=== PATIENT | male | born 1955 | race Caucasian/White ===

== ENCOUNTER 2020-03-03 09:37 | Day surgery (SDC) | payer MEDICAID ==
[~2020-03-03] VITALS: Ht 180.3 cm; Wt 85.5 kg
[~2020-03-03 09:37] MED LIST: FURO-149 PO; LACT10SO PO; LANTUS SQ; NEED-136; PANT40TA54 PO; SPIR50TA PO; SYRI-641 SUBCUT; [UNRECOGNIZED DRUG - CODE] TOP
[2020-03-03 09:45] VITALS: BP 126/85
[2020-03-03] MEDS ORDERED: PROP10TA10 PO (10:05)
[2020-03-03] MEDS ORDERED: PANT40TA54 PO (10:06)
[2020-03-03] MEDS ORDERED: FURO-149 PO (10:07)
[2020-03-03] MEDS ORDERED: SPIR25TA PO (10:07)
[2020-03-03] MEDS ORDERED: LACT10SO PO (10:09)
[2020-03-03] MEDS ORDERED: MIDAZolam 5mg/5ml vial ONE (10:10)
[2020-03-03] MEDS ORDERED: LIDOcaine Viscous 15ml cup ONE (10:10)
[2020-03-03] MEDS ORDERED: INSU100I31 (10:10)
[2020-03-03] MEDS ORDERED: fentaNYL/PF 50MCG/1 ML 2ML syringe ONE (10:10)
[2020-03-03] MEDS ORDERED: INSU100V43 (10:10)
[2020-03-03 10:26] VITALS: BP 136/81
[2020-03-03 10:36] VITALS: BP 114/74
[2020-03-03 10:46] VITALS: BP 116/74
[2020-03-03 10:56] VITALS: BP 117/77
== END 2020-03-03 11:15 | disposition home or self-care (01) ==
LOC: GI LAB 09:37
PROVIDERS: ATTEND Internal Medicine Gastroenterology
DX: I85.00 Esophageal varices without bleeding (principal); K22.8 Other specified diseases of esophagus; K76.6 Portal hypertension; K31.89 Other diseases of stomach and duodenum; Z87.891 Personal history of nicotine dependence; Z87.19 Personal history of other diseases of the digestive system
CPT/HCPCS: 43244; 99152; J2250; J3010; J7040; A4620